=== PATIENT | male | born 1945 | race Caucasian/White ===

== ENCOUNTER 2021-06-02 12:52 | Emergency (ER) | payer OTHER, MEDICAID, SELFPAY ==
[~2021-06-02] VITALS: Ht 175.3 cm; Wt 87.5 kg
[2021-06-02 13:01] VITALS: BP_SYST 142
--- NOTE | 2021-06-02 13:13 | NUR ---
Patient to ER bed 6 to gown for evaluation. Side rails up. Report given to RAVEN SCHWARZ.
--- NOTE | 2021-06-02 13:30 | NUR ---
patient to ED from [facility]. states that his b/p has been fluctuating. States today he became more anxious regarding htn and called for ems to bring to ED. patient alert and oriented x 3, denies chest pain. Bp elevated at this time 159/90
[2021-06-02 15:15] LABS: BASOPHILS % (AUTO) 0.2 % (0.0-2.0); EOSINOPHILS # (AUTO) 0.1 K/uL (0.0-0.4); EOSINOPHILS % (AUTO) 2.6 % (0.0-4.0); HEMATOCRIT 41.1 % (36-54); LYMPHOCYTES # (AUTO) 1.7 K/uL (1.0-5.5); LYMPHOCYTES % (AUTO) 33.1 % (20.5-51.5); MEAN CORPUSCULAR HEMOGLOBIN 31 pg (27-31); MEAN CORPUSCULAR HGB CONC 34 % (32-36); MEAN CORPUSCULAR VOLUME 92 fL (79.0-98.0); MONOCYTES # (AUTO) 0.4 K/uL (0.0-1.0); MONOCYTES % (AUTO) 7.9 % (1.7-9.3); NEUTROPHILS # (AUTO) 2.8 K/uL (1.8-7.7); NEUTROPHILS % (AUTO) 56.2 % (40.0-70.0); PLATELET COUNT (AUTO) 129 K/uL (130-430); RED BLOOD CELL COUNT(AUTO) 4.48 MIL/uL (4.2-6.2)
--- NOTE | 2021-06-02 15:21 | NUR ---
urine specimen collected and sent to lab per md order. patient condition goes unchanged, patient continues to be anxious. comfort and safety implemented.
[2021-06-02 15:26] LABS: ANION GAP 7 (5-15); CALCIUM 9.2 mg/dL (8.4-11.0); CHLORIDE 101 mmol/L (98-107); CREATININE 0.97 mg/dL (0.55-1.30); GLUCOSE 94 mg/dL (70-99); POTASSIUM 3.4 mmol/L (3.5-5.1); SODIUM SERUM 140 mmol/L (136-145); UREA NITROGEN, BLOOD 12 mg/dL (8-21)
[2021-06-02 15:34] LABS: ALANINE AMINOTRANSFERASE 31 U/L (12-78); ALBUMIN 4.2 g/dL (3.4-4.8); ASPARTATE AMINOTRANSFERASE 26 U/L (10-37); TOTAL BILIRUBIN 0.6 mg/dL (0.0-1.0)
--- NOTE | 2021-06-02 15:57 | NUR ---
patient condition goes unchanged, patient's lights down for comfort. iv line inserted. patient continues to have hypertension.
[2021-06-02 16:13] LABS: BILIRUBIN,URINE NEGATIVE (NEGATIVE); BLOOD, URINE NEGATIVE (NEGATIVE); CLARITY/URINE CLEAR (CLEAR); COLOR,URINE YELLOW (YELLOW); GLUCOSE,URINE NEGATIVE (NEGATIVE); KETONES,URINE NEGATIVE (NEGATIVE); LEUKOCYTE ESTERASE ,URINE NEGATIVE (NEGATIVE); NITRITE, URINE NEGATIVE (NEGATIVE); PROTEIN URINE NEGATIVE (NEGATIVE); UROBILINOGEN,URINE 0.2 (0.2-1.0)
[2021-06-02] MEDS ORDERED: MORPHINE 4 MG INJ. 4 MG/ML VIAL IVP ONE (16:15)
[2021-06-02] MEDS ORDERED: POTASSIUM CHLORIDE 20 MEQ/PKT PACKET PO ONE (16:15)
[2021-06-02] MEDS ORDERED: KETOROLAC TROMETHAMINE 15 MG VIAL IVP ONE (16:15)
--- NOTE | 2021-06-02 16:24 | NUR ---
patient administered pain medication and kcl at this time. patient has complaints of chronic low back pain. will continue to monitor the patient.
--- NOTE | 2021-06-02 16:41 | NUR ---
patient states that his pain is tolerable at this time but is requesting medication for anxiety relief. patient denies HI and SI and hallucination but states " I need something to take the anxiety away the thoughts wont stop in my head". Will notify ER MD at this time.
[2021-06-02] MEDS ORDERED: ACET-2634 PO (17:10)
[2021-06-02] MEDS ORDERED: LORazepam 1 MG TABLET PO ONE (17:15)
--- NOTE | 2021-06-02 17:38 | NUR ---
ATTEMPTED TO CALL REPORT TO [facility] AND DID NOT TAKE REPORT. PATIENT READY FOR DISCHARGE, TRANSPORT NOTIFIED, VSS.
--- NOTE | 2021-06-02 17:54 | NUR ---
patient up and ambulating in hallway by request. patient states that ambulation decreases his back pain. patient continues to wait for EMS transport back to [facility].
--- NOTE | 2021-06-02 20:32 | NUR ---
Given meal tray as patient request.
--- NOTE | 2021-06-02 22:15 | NUR ---
Patient resting quietly. No acute distress noted. Vital signs within normal range.
--- NOTE | 2021-06-03 00:02 | NUR ---
Given report to [place] staff [facility].
[2021-06-03 00:10] VITALS: BP_SYST 125
--- NOTE | 2021-06-03 00:10 | NUR ---
Patient D/C back to facility, Patient will transfer by BLS/EMS.
== END 2021-06-03 00:10 | disposition home or self-care (01) ==
LOC: SED 12:52
DX: F41.9 Anxiety disorder, unspecified (principal); R07.89 Other chest pain; I48.91 Unspecified atrial fibrillation; G89.29 Other chronic pain; M54.2 Cervicalgia; I10 Essential (primary) hypertension; Z79.899 Other long term (current) drug therapy
CPT/HCPCS: 36415; 71045; 80053; 81003; 83880; 84484; 85025; 93005; 96374; 96375; 99285; J1885; J2270

== ENCOUNTER 2022-06-26 06:40 | Day surgery (SDC) | payer OTHER, MEDICAID ==
[~2022-06-26] VITALS: Ht 177.8 cm; Wt 87.1 kg
[~2022-06-26 06:40] MED LIST: ACET-2634 PO
[2022-06-26] MEDS ORDERED: fentaNYL CITRATE/PF 100 MCG/2 ML AMP ONE (08:13)
[2022-06-26] MEDS ORDERED: MIDAZOLAM HCL 5 MG/5 ML VIAL ONE (08:13)
[2022-06-26] MEDS ORDERED: SIMETHICONE 40 MG/0.6 ML ML ONE (08:37)
[2022-06-26 17:03] VITALS: BP_SYST 113
== END 2022-06-26 09:30 | disposition home or self-care (01) ==
LOC: SDS 06:40 → SMU 06:41 → SDS 09:30
PROVIDERS: ATTEND Internal Medicine
DX: R19.5 Other fecal abnormalities (principal); D12.0 Benign neoplasm of cecum; D12.3 Benign neoplasm of transverse colon; K57.30 Diverticulosis of large intestine without perforation or abscess without bleeding; K64.8 Other hemorrhoids; I10 Essential (primary) hypertension; E78.5 Hyperlipidemia, unspecified; Z20.822 Contact with and (suspected) exposure to COVID-19; Z79.01 Long term (current) use of anticoagulants; Z79.899 Other long term (current) drug therapy
CPT/HCPCS: 45385; 87426; 36415; 88305; 99152; G0378; J2250; J3010

== ENCOUNTER 2023-10-13 15:28 | Emergency (ER) | payer OTHER, MEDICAID ==
[~2023-10-13] VITALS: Ht 180.3 cm; Wt 91.6 kg
[2023-10-13 15:50] VITALS: BP_SYST 130; PULSE 113; RESP 18; TEMP 99.7; O2SAT 95
[2023-10-13] MEDS ORDERED: DOXY100C5 PO ×2 (16:57→18:52)
[2023-10-13] MEDS ORDERED: HYDR-3917 PO ×2 (16:57→18:52)
[2023-10-13 17:14] VITALS: BP_SYST 130; PULSE 113; RESP 18; TEMP 99.7; O2SAT 95
== END 2023-10-13 17:14 | disposition home or self-care (01) ==
LOC: SED 15:28
DX: L03.115 Cellulitis of right lower limb (principal); M79.661 Pain in right lower leg; I10 Essential (primary) hypertension; Z79.899 Other long term (current) drug therapy
CPT/HCPCS: 93971; 99284